=== PATIENT | female | born 1995 | race Caucasian/White ===

== ENCOUNTER 2016-09-23 16:06 | Emergency (ER) | payer SELFPAY ==
[~2016-09-23] VITALS: Ht 175.3 cm; Wt 65.5 kg
[~2016-09-23 16:06] MED LIST: VICODIN 5-3001 EACH PO; ZOFRAN8 MG PO
[2016-09-23 17:07] LABS: HEMATOCRIT 37.3 % (36.0-46.0); MCH 29.4 PG (29.0-34.0); MCHC 34.3 G/DL (30.0-36.0); MCV 85.7 FL (83-99); MEAN PLAT.VOLUME 10.7 uM^3 (9.5-12.4); PLATELET COUNT 134 K/uL (156-360); RBC DIS.WIDTH-SD 40.2 % (39-53); RED BLOOD COUNT 4.35 M/uL (3.80-5.20); WHITE BLOOD COUNT 3.8 K/uL (4.1-10.2)
[2016-09-23 17:17] LABS: CHLORIDE 103 mEq/L (99-109); POTASSIUM 3.8 mEq/L (3.7-5.4); SODIUM 138 mEq/L (136-147)
[2016-09-23 17:19] LABS: GLUCOSE 107 mg/dL (70-99)
[2016-09-23 17:20] LABS: ANION GAP 12 MEQ/L (2-14)
[2016-09-23 17:23] LABS: GFR ESTIMATE (CALCULATED) > 59 mL/min/
[2016-09-23 17:24] LABS: UREA NITROGEN (BUN) 12 mg/dL (9-23)
[2016-09-23 18:25] LABS: ADD MIUA? YES; BILIRUBIN SMALL; BLOOD NEGATIVE; COLOR DK YELLOW ((YELLOW)); GLUCOSE (STRIP) NEGATIVE; KETONES 40; LEUKOCYTES NEGATIVE; NITRITE NEGATIVE; PROTEIN (STRIP) 30; SPECIFIC GRAVITY 1.038 (1.000-1.030)
[2016-09-23 18:42] LABS: EPITHELIAL CELLS 1+; MUCUS NONE SEEN; RED BLOOD CELLS NONE SEEN /HPF (0-5); UCUL ADDED? NO; WHITE BLOOD CELLS NONE SEEN /HPF (0-5)
[2016-09-23 18:43] LABS: BACTERIA 2+; CASTS NONE SEEN /LPF; CRYSTALS NONE SEEN
[2016-09-23 19:13] LABS: D-DIMER ELISA 0.28 mg/L FEU (< 0.57)
[2016-09-23] MEDS ORDERED: ZOFRAN4 MG PO (19:44)
[2016-09-23] MEDS ORDERED: MOTRIN600 MG PO (19:44)
[2016-09-23 21:17] VITALS: BP 97/52
== END 2016-09-23 21:19 | disposition home or self-care (01) ==
LOC: EME 16:06
DX: R11.2 Nausea with vomiting, unspecified (principal); R50.9 Fever, unspecified; E86.0 Dehydration; Z88.1 Allergy status to other antibiotic agents
CPT/HCPCS: 80048; 81003; 84703; 85027; 85379; 93005; 99281; 99284; J1885; J7030